=== PATIENT | female | born 1965 | race Caucasian/White ===

== ENCOUNTER 2020-08-20 19:10 | Emergency (ER) | payer SELFPAY ==
[2020-08-20] MEDS ORDERED: Sodium Chloride 0.9% 10 ML Syringe FLUSH PRN (19:27)
[2020-08-20] MEDS ORDERED: Sodium Chloride 0.9% 1,000 ML IV ONE (19:29)
[2020-08-20] MEDS ORDERED: Metoclopramide 10 MG/2 ML SDV IVPUSH ONE (20:37)
[2020-08-20] MEDS ORDERED: Ketorolac 30 MG/ML SDV IVPUSH ONE (20:37)
[2020-08-20] MEDS ORDERED: Morphine 4 MG/ML VIAL IVPUSH ONE (21:25)
[2020-08-20] MEDS ORDERED: Ondansetron 4 MG/2 ML SDV IVPUSH ONE (21:25)
--- NOTE | 2020-08-20 21:25 | EDM.PDOC ---
ED HPI GENERAL MEDICAL PROBLEM - General Chief Complaint: Chest Pain Stated Complaint: CHEST PAINS, DIFFICULTY BREATHING Time Seen by Provider: 08/20/20 20:10 Source of Information: Reports: Patient History Limitations: Reports: No Limitations - History of Present Illness INITIAL COMMENTS - FREE TEXT/NARRATIVE: 54-year-old female who reports she works nights so she has reversed her daily schedule so that she sleeps during the day and gets up toward the evening and stays up all night and she reports at approximately 4 PM she was getting up and she had some coffee and made her stake he then ate a steak and approximately 5:45 PM she began to have pain in her epigastrium and right upper quadrant. It quickly began very severe and seemed to radiate through to her mid back at times as well. She states that it just was not going away and she took Pepto-Bismol at 6 PM and that didn't really seem to help either. She also reports that during this she was profusely diaphoretic and there was some nausea. Her pain was unrelenting and she was feeling weak all over. That caused her to present to the emergency department for evaluation. The time I am seeing her, her pain as but it is still about a 3-4/10. It does have intermittent worsening and then seems to relax following this. The pain did not radiate through into her chest. She has been having episodes for about the past 6-7 months where she will get headaches associated with diaphoresis and she feels weak all over. She reports that she considers these "migraine headaches" he is currently in the process of getting evaluated for this. This pain is often associated with nausea and vomiting and she has been taking care of it at home. Oftentimes requires just going to bed and sleeping it off. She has really never had pains in her right abdomen but has had some pains in her back off and on associated with these headaches and the diaphoresis. She states this time she was feeling completely well prior to all this. There is no shortness of breath. There has been no cough. There are no other associated signs or symptoms. There are no other modifying factors. Onset: Today (5:45 PM) Duration: Constant, Improving Location: Reports: Abdomen, Back Quality: Reports: Ache, Pressure, Sharp Severity: Moderate (to severe) Improves with: Reports: None Worsens with: Reports: Other (Palpation) Context: Reports: Other (As above) Associated Symptoms: Reports: No Other Symptoms (Except as above) Treatments DIGITAL LIBRARIAN: Reports: Other Medication(s) (Pepto-Bismol) Epigastric Pain Score (Numeric/FACES): 5 - Related Data Allergies Allergy/AdvReac Type Severity Reaction Status Date / Time No Known Allergies Allergy Verified 08/20/20 19:29 Home Meds: Home Meds SUMAtriptan [Imitrex] 50 mg PO ASDIRECTED PRN 08/20/20 [History] Past Medical History 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 DRAFTER 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: 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 (See Below) Other PATENT DRAFTER History: menopause Neurological 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: Migraines - Past Surgical History Cardiovascular Surgical 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: Varicose (Vein stripping 3) Social & Family History - Tobacco Use Tobacco Use Status *Q: Never Tobacco User - Caffeine Use Caffeine Use: Reports: Coffee - Alcohol Use Alcohol Use History: No - Recreational Drug Use Recreational Drug Use: No - Living Situation & Occupation Occupation: 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 Denies: Vomiting : Denies: Dysuria, Frequency Musculoskeletal: Reports: Back Pain. Denies: Neck Pain Skin: Reports: Diaphoresis. Denies: Rash Neurological: Denies: Dizziness, Headache (Leg now but she gets headaches frequently) Hematologic/Lymphatic: Denies: Easy Bleeding, Easy Bruising ED EXAM, GI/ABD - Physical Exam Exam: See Below Exam Limited By: No Limitations General Appearance: Alert, WD/WN, Mild Distress, Other (She is fluent and appropriate in her conversation.) Eyes: Bilateral: Normal Appearance, EOMI Ears: Normal External Exam, Hearing Grossly Normal Nose: Normal Inspection, Normal Mucosa, No Blood Throat/Mouth: Normal Voice, No Airway Compromise, Other (Dry mucous membranes) Head: Atraumatic, Normocephalic Neck: Normal Inspection, Supple, Non-Tender, Full Range of Motion Respiratory/Chest: No Respiratory Distress, Lungs Clear, Normal Breath Sounds, No Accessory Muscle Use, Chest Non-Tender Cardiovascular: Normal Peripheral Pulses, Regular Rate, Rhythm, No Murmur GI/Abdominal Exam: Soft, No Distention, No Mass, Pelvis Stable, Tender (In the right upper quadrant and epigastrium), Abnormal Bowel Sounds (Bowel sounds are somewhat quiet.) Back Exam: Normal Inspection, Full Range of Motion. No: CVA Tenderness (R), CVA Tenderness (L) Extremities: Normal Inspection, Normal Range of Motion, Non-Tender, No Pedal Edema, Normal Capillary Refill Neurological: Alert, Oriented, CN II-XII Intact, Normal Cognition, No Motor/Sensory Deficits Psychiatric: Normal Affect Skin Exam: Warm, Dry, Intact, Normal Color, No Rash #1 Interpretation EKG Date: 08/20/20 Time: 19:11 Rhythm: NSR Rate (Beats/Min): 54 [place]: Normal P-Wave: Present QRS: Normal ST-T: Normal QT: Prolonged (Slightly prolonged QTc.) Comparison: NA - No Prior EKG #2 Interpretation EKG Date: 08/20/20 Time: 23:27 Rhythm: NSR Rate (Beats/Min): 66 [place]: Normal P-Wave: Present QRS: Normal ST-T: Normal QT: Prolonged (Prolonged QTc.) Comparison: No Change (Compared to an EKG performed earlier today, there are no significant changes.) Course - Vital Signs Last Recorded V/S: Last Vital Signs Temp 36.4 C 08/20/20 19:10 Pulse 59 L 08/20/20 19:10 Resp 16 08/20/20 19:10 BP 148/87 H 08/20/20 19:10 Pulse Ox 99 08/20/20 19:10 - Orders/Labs/Meds Orders: Active Orders 24 hr Category Date Time Status Peripheral IV Insertion Adult [OM.PC] Routine Oth 08/20/20 19:27 Ordered EKG 12 Lead [EK] Routine Ther 08/20/20 19:27 Ordered EKG 12 Lead [EK] Routine Ther 08/20/20 22:30 Ordered Labs: Laboratory Tests 08/20/20 08/20/20 08/20/20 Range/Units 19:30 19:30 19:30 WBC 4.8 (3.0-10.3) x10-3/uL RBC 4.36 (3.60-5.20) x10(6)uL Hgb 14.5 (11.4-15.5) g/dL Hct 42.0 (34.2-48.2) % MCV 96.3 (76.7-100.5) fL MCH 33.3 (23.9-33.9) pg MCHC 34.6 (31.9-34.8) g/dL RDW 12.3 (12.3-16.5) % Plt Count 200 (151-488) x10(3)uL MPV 8.7 (7.1-12.4) fL Neut % (Auto) 55.4 (30.8-76.2) % Lymph % (Auto) 32.0 (18.4-52.1) % [place] % (Auto) 10.4 (4.4-15.7) % Eos % (Auto) 1.2 (0.6-8.1) % Baso % (Auto) 1.0 (0.2-1.5) % Neut # (Auto) 2.6 (1.5-6.3) x10-3/uL Lymph # (Auto) 1.5 (1.0-4.4) x10-3/uL [place] # (Auto) 0.5 (0.3-1.0) x10-3/uL Eos # (Auto) 0.1 (0.0-0.8) x10-3/uL Baso # (Auto) 0.0 (0.0-0.1) x10-3/uL Sodium 143 (135-145) mmol/L Potassium 3.5 (3.5-5.3) mmol/L Chloride 104 (100-110) mmol/L Carbon Dioxide 25 (21-32) mmol/L BUN 12 (7-18) mg/dL Creatinine 1.0 (0.55-1.02) mg/dL Est Cr Clr Drug Dosing 75.94 mL/min Estimated GFR (MDRD) 58 L (>60) BUN/Creatinine Ratio 12.0 (9-20) Glucose 105 (80-116) mg/dL Calcium 8.3 L (8.6-10.2) mg/dL Magnesium 1.9 (1.8-2.5) mg/dL Total Bilirubin 0.9 (0.1-1.3) mg/dL AST 22 (5-25) IU/L ALT 19 (12-36) U/L Alkaline Phosphatase 80 (56-112) IU/L Troponin I 6.9 (4.0-60.3) pg/mL Total Protein 7.6 (6.0-8.0) g/dL Albumin 3.8 (3.5-5.2) g/dL Globulin 3.8 g/dL Albumin/Globulin Ratio 1.0 Lipase 110 (73-393) U/L 08/20/20 Range/Units 22:45 WBC (3.0-10.3) x10-3/uL RBC (3.60-5.20) x10(6)uL Hgb (11.4-15.5) g/dL Hct (34.2-48.2) % MCV (76.7-100.5) fL MCH (23.9-33.9) pg MCHC (31.9-34.8) g/dL RDW (12.3-16.5) % Plt Count (151-488) x10(3)uL MPV (7.1-12.4) fL Neut % (Auto) (30.8-76.2) % Lymph % (Auto) (18.4-52.1) % [place] % (Auto) (4.4-15.7) % Eos % (Auto) (0.6-8.1) % Baso % (Auto) (0.2-1.5) % Neut # (Auto) (1.5-6.3) x10-3/uL Lymph # (Auto) (1.0-4.4) x10-3/uL [place] # (Auto) (0.3-1.0) x10-3/uL Eos # (Auto) (0.0-0.8) x10-3/uL Baso # (Auto) (0.0-0.1) x10-3/uL Sodium (135-145) mmol/L Potassium (3.5-5.3) mmol/L Chloride (100-110) mmol/L Carbon Dioxide (21-32) mmol/L BUN (7-18) mg/dL Creatinine (0.55-1.02) mg/dL Est Cr Clr Drug Dosing mL/min Estimated GFR (MDRD) (>60) BUN/Creatinine Ratio (9-20) Glucose (80-116) mg/dL Calcium (8.6-10.2) mg/dL Magnesium (1.8-2.5) mg/dL Total Bilirubin (0.1-1.3) mg/dL AST (5-25) IU/L ALT (12-36) U/L Alkaline Phosphatase (56-112) IU/L Troponin I 7.0 (4.0-60.3) pg/mL Total Protein (6.0-8.0) g/dL Albumin (3.5-5.2) g/dL Globulin g/dL Albumin/Globulin Ratio Lipase (73-393) U/L Meds: Medications Discontinued Medications Generic Name Dose Route Start Last Admin Trade Name Freq PRN Reason Stop Dose Admin Sodium Chloride 1,000 mls @ 999 mls/hr 08/20/20 19:29 08/20/20 19:38 Normal Saline IV 08/20/20 20:29 999 mls/hr .BOLUS ONE Administration Ketorolac Tromethamine 30 mg 08/20/20 20:37 08/20/20 21:56 Ketorolac 30 Mg/Ml Sdv IVPUSH 08/20/20 20:38 30 mg ONETIME ONE Administration Metoclopramide HCl 10 mg 08/20/20 20:37 08/20/20 21:56 Metoclopramide 10 Mg/2 Ml Sdv IVPUSH 08/20/20 20:38 10 mg ONETIME ONE Administration Morphine Sulfate 4 mg 08/20/20 21:25 Morphine 4 Mg/Ml Vial IVPUSH 08/20/20 21:26 ONETIME ONE Ondansetron HCl 4 mg 08/20/20 21:25 Ondansetron 4 Mg/2 Ml Sdv IVPUSH 08/20/20 21:26 ONETIME ONE Sodium Chloride 10 ml 08/20/20 19:27 Sodium Chloride 0.9% 10 Ml Syringe FLUSH ASDIRECTED PRN Keep Vein Open - Re-Assessments/Exams Free Text/Narrative Re-Assessment/Exam: 08/20/20 21:30: The patient is comfortable at present. All of her labs are reassuringly normal. Specifically, her LFTs and her lipase were normal and her troponin was normal. But she still has pain with palpation in her epigastrium and right upper quadrant. She has remained hemodynamically stable. Her initial troponin and her EKG were normal. I had ordered medication for her pain and some IV fluids. Her signs and symptoms very consistent with this being biliary colic. She does have a family history of heart disease in her father side, therefore I will have recommended that we repeat her troponin at 3 hour level and also will her EKG at that time. She is in agreement with that. We will continue to watch her closely. 08/20/20 23:00: Apparently, the patient had not received her pain medication earlier. I had ordered additional pain medication and then with the nurse checking she found that the medication had not been given earlier and therefore she gave the Toradol and the Reglan but did not get the morphine and the Zofran currently she has no pain. Her abdomen is soft and completely benign with palpation. She has maybe a little bit of soreness there but can barely feel it. Her repeat EKG has not been performed. I am awaiting on the troponin present. 08/20/20 23:30: Her repeat EKG is unchanged from the previous. Her repeat troponin was normal. She continues to be pain-free and her abdomen remains benign. I discussed all this with the patient and the patient is ready for discharge at this point. Precautions and reasons for return to the emergency department were discussed with the patient and her family member all she was in the emergency department were detailed to the patient's discharge instructions. Departure - Departure Time of Disposition: 23:37 Disposition: Home, Self-Care 01 Condition: Good (Improved.) Clinical Impression: Epigastric abdominal pain, Abdominal pain of unknown etiology - Discharge Information Instructions: Abdominal Pain, Adult, [id number] Referrals: Kee Chen MD [Primary Care Provider] - Forms: ED Department Discharge Additional Instructions: Your blood tests were all reassuringly normal. We checked your heart enzyme test twice over time and on both times your heart enzyme was normal. Your EKGs were normal and showed no heart attack pattern. I am unsure of the cause of your abdominal pain but, I think that it is likely due to a gallbladder attack. You should avoid any fatty foods. You should increase your fluid intake. You will need to follow-up with your primary provider this week as he will need additional outpatient testing including an ultrasound of your gallbladder. Back to the emergency department for recurrent, severe abdominal pain, chest pain, difficulty breathing, unrelenting vomiting, severe back pain, severe weakness, fever or any other concerning signs or symptoms. Sepsis Event Note (ED) - Evaluation Sepsis Screening Result: No Definite Risk - My Orders Last 24 Hours: My Active Orders 08/20/20 19:27 Peripheral IV Insertion Adult [OM.PC] Routine EKG 12 Lead [EK] Routine 08/20/20 22:30 EKG 12 Lead [EK] Routine - Assessment/Plan Last 24 Hours: My Active Orders 08/20/20 19:27 Peripheral IV Insertion Adult [OM.PC] Routine EKG 12 Lead [EK] Routine 08/20/20 22:30 EKG 12 Lead [EK] Routine
== END 2020-08-20 23:47 | disposition home or self-care (01) ==
LOC: FB.ED 19:10
DX: R10.13 Epigastric pain (principal)
CPT/HCPCS: 36415; 80053; 83690; 83735; 84484; 85025; 93005; 96374; 96375; 99284; J1885; J2765; J7030; 93010

== ENCOUNTER 2022-04-24 08:30 | Day surgery (SDC) | payer BC ==
[~2022-04-24 08:30] MED LIST: Sodium Chloride 0.9% 10 ML Syringe FLUSH PRN
[2022-04-24] MEDS ORDERED: Glycopyrrolate 0.2 MG/ML 5 ML MDV IV ONE (08:31)
[2022-04-24] MEDS ORDERED: Labetalol 100 MG/20 ML MDV IV ONE (08:31)
[2022-04-24] MEDS ORDERED: Propofol 200 MG/20 ML SDV IV ONE (08:31)
[2022-04-24] MEDS: Lactated Ringers 1,000 ML IV SCH (10:00)
== END 2022-04-24 11:25 | disposition home or self-care (01) ==
LOC: FB.SDS 08:30
PROVIDERS: ATTEND Surgery
DX: Z12.11 Encounter for screening for malignant neoplasm of colon (principal); D68.9 Coagulation defect, unspecified; Z79.899 Other long term (current) drug therapy; Z79.82 Long term (current) use of aspirin; Z98.890 Other specified postprocedural states; Z87.891 Personal history of nicotine dependence; Z86.711 Personal history of pulmonary embolism
CPT/HCPCS: 00812; J2704; J3490; J7120